=== PATIENT | male | born 1950 | race Caucasian/White ===

== ENCOUNTER → 2022-03-17 15:11 | Outpatient (CLI) | payer MEDICARE, OTHER, SELFPAY | PROVIDERS: Visit Provider Urology | DX: N39.0 Urinary tract infection, site not specified (principal); R30.0 Dysuria; R33.9 Retention of urine, unspecified; R39.9 Unspecified symptoms and signs involving the genitourinary system; Z87.440 Personal history of urinary (tract) infections | CPT/HCPCS: 36415; 51798; 80048; 87086; 99214 ==

== ENCOUNTER → 2022-03-17 16:23 | Outpatient (CLI) | payer MEDICARE, OTHER, SELFPAY ==
[2022-03-17 17:47] LABS: BUN Creatinine Ratio 13.8 (6-22); Blood Urea Nitrogen 17 mg/dL (9-20); Calcium 8.9 mg/dL (8.4-10.2); Carbon Dioxide 26 mmol/L (22-32); Chloride 107 mmol/L (98-107); Estimated Glomerular Filt Rate > 60 mL/min (>60); Glucose 100 mg/dL (80-110); HEMOLYSIS < 15 (0-50); Potassium 3.8 mmol/L (3.4-5.1); Sodium 143 mmol/L (137-145)
== END ==
PROVIDERS: PCP Urology; Referring Provider Urology; Visit Provider Urology
DX: N39.0 Urinary tract infection, site not specified (principal); R33.9 Retention of urine, unspecified
CPT/HCPCS: 36415; 80048

== ENCOUNTER → 2022-03-22 14:24 | Outpatient (CLI) | payer MEDICARE, OTHER, SELFPAY ==
--- NOTE | 2022-03-22 14:25 | DI.CT.S_ITS ---
PROCEDURE: CT ABDOMEN PELVIS WO/W CON INDICATIONS: Hematuria TECHNIQUE: After the administration of oral contrast, 5 mm thick sections acquired from the diaphragms to the iliac crests. After the administration of intravenous contrast, 5 mm thick sections acquired from the diaphragms to the symphysis. 5 mm thick coronal and sagittal reformats were acquired. For radiation dose reduction, the following was used: automated exposure control, adjustment of mA and/or kV according to patient size. COMPARISON: None. FINDINGS: Lower thorax: The lung bases are clear. Heart size normal. No hiatal hernia. Liver: Normal in size and attenuation. No contour deformity present. There is low-density 3 cm lesion in the right hepatic lobe with peripheral puddling of contrast, most consistent with hepatic hemangioma. Biliary system: No calcified cholelithiasis or pericholecystic inflammation. No intra or extrahepatic bile duct dilatation. Pancreas: Unremarkable without mass or inflammation evident. Spleen: Normal in size and density. Adrenals: Normal morphology and density. Reproductive system: Prosthetic hypertrophy elevates the bladder floor Urinary system: Large simple left renal cyst measures 8.9 cm arising from the lower pole the left kidney. No hydronephrosis or obstructive uropathy present. Smaller bilateral renal cysts simple cysts present as well. Large right-sided bladder Hutch diverticulum measures 6.0 x 4.3 cm. Gastrointestinal system: The bowel is unremarkable without evidence of bowel obstruction or inflammation. The stomach appears unremarkable. Appendix: Normal appendix identified. No evidence of appendicitis. Peritoneal spaces: No mesenteric or retroperitoneal adenopathy. No free air. No free fluid. Vasculature: Aortic atherosclerotic vascular calcification noted without evidence of aneurysm. Abdominal wall: Abdominal wall intact without evidence of ventral or inguinal hernias. Musculoskeletal: Normal bone mineralization. No acute fractures. IMPRESSION: 1. Bilateral renal cysts without evidence of obstructive uropathy, hydronephrosis or renal calculi. 2. Large right-sided bladder Hutch diverticulum. 3. Prostatic hypertrophy elevates the bladder floor. 4. Probable right hepatic hemangioma on 03/22/2022 at 18:52 Segundo Dey
== END ==
PROVIDERS: PCP Family Medicine; Referring Provider Urology; Visit Provider Urology
DX: N28.1 Cyst of kidney, acquired (principal); N32.3 Diverticulum of bladder; N40.0 Benign prostatic hyperplasia without lower urinary tract symptoms; R39.9 Unspecified symptoms and signs involving the genitourinary system
CPT/HCPCS: 74178; Q9967

== ENCOUNTER → 2022-05-26 10:29 | Outpatient (CLI) | payer MEDICARE, OTHER, SELFPAY ==
[2022-05-26 12:02] LABS: BUN Creatinine Ratio 17.7 (6-22); Blood Urea Nitrogen 17 mg/dL (9-20); Carbon Dioxide 29 mmol/L (22-32); Chloride 104 mmol/L (98-107); Estimated Glomerular Filt Rate > 60 mL/min (>60); Glucose 101 mg/dL (80-110); HEMOLYSIS < 15 (0-50); Potassium 4.7 mmol/L (3.4-5.1); Sodium 139 mmol/L (137-145)
[2022-05-27 09:57] LABS: PSA Free % 21.9 % (.); PSA, Total 3.2 ng/mL (0.0-4.0)
== END ==
PROVIDERS: PCP Family Medicine; Referring Provider Urology; Visit Provider Urology
DX: N40.0 Benign prostatic hyperplasia without lower urinary tract symptoms (principal); R97.20 Elevated prostate specific antigen [PSA]
CPT/HCPCS: 36415; 51798; 52000; 80048; 81002; 84153; 84154; 99213

== ENCOUNTER → 2022-06-16 11:45 | Outpatient (CLI) | payer MEDICARE, OTHER, SELFPAY ==
[2022-06-16 13:40] LABS: Appearance Urine UA CLOUDY; Bilirubin Urine UA NEGATIVE (NEGATIVE); Color Urine UA YELLOW; Glucose Urine UA NEGATIVE (Negative); Ketones Urine UA NEGATIVE (NEGATIVE); Leukocyte Esterase Urine UA 2+ (NEGATIVE); Nitrite Urine UA NEGATIVE (Negative); Occult Blood Urine UA 3+ (Negative); Protein Urine UA 3+ (Negative); Specific Gravity Urine UA 1.025 (1.000-1.035); Urobilinogen Urine UA 0.2 E.U./dL (0.2)
[2022-06-16 14:11] LABS: Bacteria Urine Many (>30); Culture Indicated Urine Specimen Cultured; RBC Urine 10-30/HPF (0-5/HPF); Squamous Epithelial Cell Urine 1-5 /HPF (0-5/HPF); WBC Urine >100/HPF (0-5/HPF)
== END ==
PROVIDERS: PCP Family Medicine; Referring Provider Urology; Visit Provider Urology
DX: R30.0 Dysuria (principal)
CPT/HCPCS: 81001; 87086

== ENCOUNTER 2022-06-18 18:04 | Emergency (ER) | payer MEDICARE, OTHER, SELFPAY ==
[2022-06-18 18:35] VITALS: BP 177/82; PULSE 80; RESP 16; TEMP 37; O2SAT 98; BMI 23.0
[2022-06-18 18:45] LABS: Appearance Urine UA CLOUDY; Bilirubin Urine UA NEGATIVE (NEGATIVE); Color Urine UA ORANGE; Glucose Urine UA TRACE g/dL (Negative); Ketones Urine UA NEGATIVE (NEGATIVE); Leukocyte Esterase Urine UA 2+ (NEGATIVE); Nitrite Urine UA POSITIVE (Negative); Occult Blood Urine UA 3+ (Negative); Protein Urine UA 3+ (Negative)
[2022-06-18 19:23] LABS: Amorphous Sediment Urine 1+; Bacteria Urine Moderate (10-30); Culture Indicated Urine Specimen Cultured; RBC Urine 10-30/HPF (0-5/HPF); WBC Urine 5-10/HPF (0-5/HPF)
[2022-06-18] MEDS: CIPROFLOXACIN 250 MG TABLET 500 MG PO (20:12)
--- NOTE | 2022-06-18 20:13 | ED_ITS ---
HPI - Male Genitourinary General Chief complaint: Urogenital-Male Stated complaint: Urinary tract problems Time Seen by Provider: 06/18/22 18:26 Source: patient Mode of arrival: Ambulatory History of Present Illness HPI Narrative: Patient is a 72-year-old male who presents to the emergency room today with complaint of urinary tract infection. The patient's CC is urinary frequency burning cloudy urine for the last week. Patient states he also has frequent recurrent urinary tract infections and has had about 3 in the last year. Patient states for urinary tract infection he has been taking ciprofloxacin to help relieve. Patient also states he has an appointment scheduled with provider Dr. Kidd in of this week to address her chronic urinary obstructive issues. Patient denies any other concerns Related Data Home Medications Medication Instructions Recorded Confirmed rosuvastatin 10 mg tablet 10 mg PO DAILY 03/17/22 06/09/22 tamsulosin 0.4 mg capsule 0.4 mg PO DAILY 03/17/22 06/09/22 Previous Rx's Medication Instructions Recorded ciprofloxacin HCl 500 mg tablet 500 mg PO BID #19 tabs 06/18/22 Allergies Allergy/AdvReac Type Severity Reaction Status Date / Time No Known Drug Allergies Allergy Verified 06/09/22 13:59 Review of Systems Review of Systems Narrative: R.O.S.: General: No fever, chills, fatigue or other concerns. Cardiovascular: No chest pain, palpitations or other Cardiovascular related concerns. Respiratory: No S.O.B. or other Respiratory related concerns. HEENT: No congestion, ear pain, rhinorrhea, sore throat or tinnitus Gastrointestinal: No nausea, vomiting or other Gastrointestinal related concerns. Skin: No rash or associated abnormalities Neurological: Awake, alert and in not apparent distress. No Headaches, changes in vision or other related neurological concerns. Patient History Medical History Benign prostatic hyperplasia Bladder outlet obstruction Dysuria Elevated PSA History of chronic urinary tract infection History of heart attack History of urinary tract infection Incomplete emptying of bladder Lower urinary tract symptoms Renal cyst Surgical History Hx of circumcision Family History Daughter Eczema Social History Smoking Status: Former smoker alcohol intake: current caffeine: Yes Smoking Status: Former smoker Exam Initial Vital Signs Initial Vital Signs: Vital Signs Temperature 98.6 F 06/18/22 18:35 Pulse Rate 80 06/18/22 18:35 Respiratory Rate 16 06/18/22 18:35 Blood Pressure 177/82 H 06/18/22 18:35 Pulse Oximetry 98 06/18/22 18:35 Oxygen Delivery Method 06/18/22 18:35 GI Inspection: normal to inspection Palpation: soft, No guarding and No tender Percussion: normal to percussion Auscultation: normal bowel sounds Course Orders Ordered: Discontinued Medications Ciprofloxacin (Ciprofloxacin 250 Mg Tablet) 500 mg PO NOW ONE Stop: 06/18/22 20:08 Last Admin: 06/18/22 20:12 Dose: 500 mg Documented By: ROSELINE Vital Signs Vital signs: Vital Signs - 8 hr 06/18/22 18:35 Temperature 98.6 F Pulse Rate 80 Respiratory Rate 16 Blood Pressure 177/82 H Pulse Oximetry 98 Oxygen Delivery Method Room Air MDM - Male Genitourinary Lab Data Labs: Lab Results 06/18/22 Range/Units 18:30 Urine Color Loop Urine Appearance Cloudy Urine pH 6.0 (4.5-8.0) Ur Specific [place] 1.020 (1.000-1.035) Urine Protein 3+ H (Negative) Urine Glucose (UA) Trace H (Negative) g/dL Urine Ketones Negative (NEGATIVE) Urine Occult Blood 3+ H (Negative) Urine Nitrate Positive H (Negative) Urine Bilirubin Negative (NEGATIVE) Urine Urobilinogen 2.0 H (0.2) E.U./dL Ur Leukocyte Esterase 2+ H (NEGATIVE) Urine RBC 10-30/hpf H (0-5/HPF) Urine WBC 5-10/hpf H (0-5/HPF) Amorphous Sediment 1+ Urine Bacteria Moderate (10-30) H (None) Ur Culture Indicated? Specimen cultured Urine Dip Bedside Urine Glucose Negative Bedside Urine Bilirubin ++ 2 Bedside Urine Ketone - Negative Urine Specific [place] 1.025 Bedside Urine Occult Blood +++ Bedside Urine pH 6 Bedside Urine Protein +++ 300 Bedside Urine Urobilinogen 2+ 4mg Bedside Urine Nitrite - Negative Bedside Urine Leukocytes ++ 125 Esterase [facility] Narrative Medical decision making narrative: Patient is 72-year-old male who presented to the emergency room today with comp laint of frequency burning cloudy urine for about a week. Patient admits to having recurrent urinary tract infections. States he has had about 3 urinary tract infections this year. States he was tried on antibiotics it did not work and was changed to ciprofloxacin to help with sleep previous urinary tract infections. Patient states he is seeing a provider here at [facility] Dr. Morris for his chronic obstructive urinary issues. Patient states his next appointment is scheduled for June 25 of this year. Urine was positive for urinary tract infection. This provider ordered ciprofloxacin b.i.d. times 10 days. First dose to be administered here in the emergency room. Patient agrees with plan Discharge Plan Departure Patient Disposition: Home Clinical Impression: Urinary tract infection Instructions: DI for Urinary Tract Infection (UTI) Activity Restrictions/Additional Instructions: *You have been diagnosed with [a urinary tract infection.] Suggest you take the antibiotics as ordered and follow up with Ear provider on the as you currently scheduled. Also suggest you contact the emergency room with any emergent concerns. *What to do: *Please continue to take your regular medications as directed. [x ] New medication prescriptions sent to your pharmacy: [ ] [ ] New medication written as a paper prescription [ ] No new medications given *Please follow up with your primary care provider in 2-3 days, call for an appointment. Let them know you were seen in the Emergency Department and that we ask that you be seen in follow up. We will electronically transmit a record of today's note if your PCP is in our system *If you do not have a primary care provider please contact the [facility] Resource line at [phone]. They will ask some questions about your medical history and help get you set up with a doctor in the community. *Return to Emergency Department if you should have any new, worsening or concerning symptoms, such as [fever greater than 101 F, shaking chills, worsening pain, persistent vomiting or other bothersome symptoms] Prescriptions: New ciprofloxacin HCl 500 mg tablet 500 mg PO BID Qty: 19 0RF No Action tamsulosin 0.4 mg capsule 0.4 mg PO DAILY rosuvastatin 10 mg tablet 10 mg PO DAILY Referrals: Cong Fletcher DO [Primary Care Provider] - Visit Report Forms: Patient Portal/API
[2022-06-18 20:17] VITALS: BP 150/83; PULSE 78; O2SAT 97
[2022-06-18 20:19] VITALS: BP 150/83; PULSE 73; RESP 16; O2SAT 98
== END 2022-06-18 20:22 | disposition home or self-care (01) ==
PROVIDERS: Emergency Provider Physician Assistant; PCP Family Medicine
DX: N39.0 Urinary tract infection, site not specified (principal)
CPT/HCPCS: 81001; 81003; 87086; 99283

== ENCOUNTER → 2022-06-29 14:28 | Outpatient (CLI) | payer MEDICARE, OTHER, SELFPAY | PROVIDERS: PCP Family Medicine; Visit Provider Urology | DX: N30.01 Acute cystitis with hematuria (principal); N32.0 Bladder-neck obstruction; N40.1 Benign prostatic hyperplasia with lower urinary tract symptoms; R39.14 Feeling of incomplete bladder emptying; N28.1 Cyst of kidney, acquired; R97.20 Elevated prostate specific antigen [PSA]; R39.9 Unspecified symptoms and signs involving the genitourinary system; R33.9 Retention of urine, unspecified | CPT/HCPCS: 81002; 87086; 99214 ==

== ENCOUNTER → 2022-07-16 10:55 | Outpatient (CLI) | payer MEDICARE, OTHER, SELFPAY ==
[2022-07-16 11:42] LABS: COVID19 -Nasal RAPID Negative (Negative)
== END ==
PROVIDERS: PCP Family Medicine; Visit Provider Urology
DX: Z20.822 Contact with and (suspected) exposure to COVID-19 (principal); N32.0 Bladder-neck obstruction; N40.1 Benign prostatic hyperplasia with lower urinary tract symptoms; R39.14 Feeling of incomplete bladder emptying; R97.20 Elevated prostate specific antigen [PSA]; Z87.440 Personal history of urinary (tract) infections; R33.9 Retention of urine, unspecified; R39.9 Unspecified symptoms and signs involving the genitourinary system; N28.1 Cyst of kidney, acquired
CPT/HCPCS: 81002; 87635; 99214

== ENCOUNTER 2022-07-19 06:32 | Day surgery (SDC) | payer MEDICARE, OTHER, SELFPAY ==
[2022-07-14 15:02] VITALS: BMI 23.0
[2022-07-19] VITALS (11 sets, daily range): BP systolic 104–131; BP diastolic 60–78; PULSE 67–80; RESP 12–18; TEMP 36.2–37.1; O2SAT 96–100; BMI 23.0
--- NOTE | 2022-07-19 | PATH_ITS ---
[facility] Accession Number: [id number] . 01 Material submitted: . prostate - PROSTATE TISSUE, MEDIAL LOW PROSTATE . 01 Diagnosis: Prostate Tissue, Medial Low Prostate: Benign prostatic tissue with patchy glandular and stromal hyperplasia and chronic prostatitis. Negative for malignancy. V 07/21/2022 1007 Local . 01 Electronically signed: . Jacquie Nguyen MD, Pathologist NPI- [id number] . 01 Gross description: . Received in formalin labeled with the patient's name and prostate tissue median lobe prostate consists of an irregular ragged fragment of rao soft tissue measuring 2.3 x 1.8 x 1.0 cm. One surface is rao and relatively smooth while the remaining surface is ragged and consistent with cautery artifact. The cauterized surfaces are inked blue. The specimen is serially sectioned and submitted entirely in cassettes A1-A2. ([id number]) /V 07/20/2022 1820 Local . 01 Pathologist provided ICD-10: N42.89 . 01 CPT . 910298 Specimen Comment: A courtesy copy of this report has been sent to [phone] Performed at: 01 [facility] [address] [place] [address] [address], [place], [place] [id number] MD Shane Segovia MD Phone: [phone]
[2022-07-19] MEDS: LACTATED RINGERS 1,000 ML 84 ML IV (06:47)
--- NOTE | 2022-07-19 07:37 | PM.PREOP ---
Pre-operative Note COVID-19 COVID-19 status: Negative Result date/Date tested (Pos, Neg/Pending): 07/16/22 Criteria for continued procedure: Delay expected to result in less-positive ultimate med/surg outcome and Non-surgical alternatives not available or appropriate per current SOC Interval Note History & Physical reviewed/Exam performed by Physician: Yes Changes to H&P: No
[2022-07-19] MEDS: CIPROFLOXACIN 400 MG/200 ML PIGGYBACK 200 MG IV (07:47)
--- NOTE | 2022-07-19 08:17 | SUR.OPER ---
Lithotomy on padded OR bed, head on pillow, arms secured on padded arm boards at <90 degrees abduction. Legs secured in padded yellow fins stirrups.
--- NOTE | 2022-07-19 09:25 | P.OP_ITS ---
Procedure & Clinicians Procedure: Photo vaporization and laser enucleation of prostate Same procedure as scheduled: Yes Indications: This is a 72-year-old male who had profound bladder outlet obstructive symptoms and was found to have a large median lobe which was obstructing the bladder outlet. As well as some bilobar obstructive character to the prostate. He presents this time for the above procedure. Surgeon: Otis Morris Click Yes if Unassisted: Yes Anesthesia Type: General Operative Notes Findings: Urethra to the prostatic fossa was normal. Prostate exhibits moderate approaching severe obstructive character with a large median lobe filling the bladder outlet. Ureteral orifices were in a proximal normal position with clear efflux and at the end of the procedure were intact and unharmed. The bladder exhibits severe trabeculation cellules on the posterior right there is a large mouth diverticulum. There were no stones or other abnormalities within the bladder. At the end the procedure the prostate was widely patent and opened and vigor stream was observed with a full bladder in gentle pressure on the abdomen. A 22 Algerian 5 cc Ruano catheter was left in place with 50 cc of sterile water in the balloon. Total laser energy 154,131 joules total laser time 21 minutes 2 seconds. Closure Type: not applicable Specimen(s): other (Remainder of median lobe of prostate) Applied: catheter (22 Algerian 5 cc Ruano catheter 15 cc of sterile water in the balloon) Estimated Blood Loss (mL): 50 Blood products transfused: none Procedure in detail: Procedure in detail: After informed consent was obtained, the patient was identified and brought to the operative room. Patient placed in a supine position on the table anesthesia was induced to maintain. Ensuring an adequate level of anesthesia the patient was transitioned to the lithotomy position where he was prepped, draped, prepared and secure to the table for a transurethral p rocedure. After time-out and ensuring an adequate level of anesthesia the laser resectoscope was inserted to the urethra prostate and bladder were cystoscopy was performed. The laser fiber was then inserted and the anatomy was of observed. The lateral lobes at the level of the verumontanum were marked with the laser as the distal extent of resection. Then going on the right posterior of the median lobe a flow channel was created with the laser. This was then repeated on the left. The median lobe was then undermined and enucleated. Attention was then turned to the median lobe and it was vaporized after having been enucleated. A small fragment which will be retrieved later was then amputated at the level of the bladder neck. Ureteral orifices were observed and were on involved in the resection. Attention was then turned to the lateral lobes which were vaporized from the bladder neck to the verumontanum down to the surgical capsule. With this done the prostate appearing widely patent the laser resectoscope was removed with the laser on standby. Cystoscope was then inserted and mechanical lithotrite inserted and the remainder of the median lobe was then grasped been removed. The scope was then reinserted and cystoscopy reperformed hemostasis appeared good with the bladder full scope was removed and gentle pressure was applied to the abdomen the patient had a vigorous stream. A 22 Algerian 5 cc Ruano catheter was then passed through the urethra and into the bladder with the aid of a catheter guide. The balloon was filled with 15 cc of sterile water and placed to gravity drainage. Patient was awakened having tolerated the procedure well transferred to the postanesthesia care unit for further recovery the patient will be discharged home there were no complication s. Complications: none Post-operative Condition: stable Disposition: PACU Plan for aftercare: Home with Ruano catheter patient to follow up my office in the morning for Ruano catheter removal and voiding trial.
--- NOTE | 2022-07-19 09:32 | SUR.OPER ---
SEE LASER INFO SHEET
[2022-07-19] MEDS: LACTATED RINGERS 1,000 ML 120 ML IV (09:46)
[2022-07-19] MEDS: ACETAMINOPHEN 325 MG TABLET 650 MG PO (09:54)
[2022-07-19] MEDS: PHENAZOPYRIDINE 100 MG TABLET 200 MG PO (10:00)
--- NOTE | 2022-07-19 11:20 | SUR.PHASEII ---
07/19/22 1100-completed home care instructions with patient,along with night & Day urine bags. Had patient practice with emptying catheter/ unclamping and resecurring devices. Questions answered. vss. meets criteria for discharge. located and moving car after patient dressed. 11:12-Discharged home wearing leg bag,and draining yellow orange tinted clear urine. has night bag and supplies with him, plus instructions. Aware to call Dr Morris's office for Time of appt. tommorrow and to steel pickler prescription at pharmacy.
== END 2022-07-19 11:12 | disposition home or self-care (01) ==
PROVIDERS: PCP Physician Assistant; Referring Provider Urology; Visit Provider Urology
PROC: (CPT 52648; principal; 2022-07-19 07:45)
DX: N40.1 Benign prostatic hyperplasia with lower urinary tract symptoms (principal); N13.8 Other obstructive and reflux uropathy; R33.8 Other retention of urine; N30.90 Cystitis, unspecified without hematuria; N28.1 Cyst of kidney, acquired
CPT/HCPCS: 52649; J0744; J1100; J2250; J2405; J2704; J3010

== ENCOUNTER → 2022-07-22 11:17 | Outpatient (CLI) | payer MEDICARE, OTHER, SELFPAY ==
[2022-07-22 11:22] LABS: Appearance Urine UA CLOUDY; Bilirubin Urine UA NEGATIVE (NEGATIVE); Color Urine UA YELLOW; Glucose Urine UA TRACE g/dL (Negative); Ketones Urine UA NEGATIVE (NEGATIVE); Leukocyte Esterase Urine UA TRACE (NEGATIVE); Nitrite Urine UA NEGATIVE (Negative); Occult Blood Urine UA 3+ (Negative); Protein Urine UA 3+ (Negative); Urobilinogen Urine UA 0.2 E.U./dL (0.2)
[2022-07-22 12:14] LABS: RBC Urine 30-100/HPF (0-5/HPF); WBC Urine 1-5/HPF (0-5/HPF)
[2022-07-22 12:15] LABS: Bacteria Urine Few (2-10); Culture Indicated Urine Specimen Cultured; Squamous Epithelial Cell Urine None Seen (0-5/HPF)
== END ==
PROVIDERS: PCP Physician Assistant; Visit Provider Urology
DX: N28.1 Cyst of kidney, acquired (principal); N32.0 Bladder-neck obstruction; R30.0 Dysuria; R33.9 Retention of urine, unspecified; R39.9 Unspecified symptoms and signs involving the genitourinary system; Z87.440 Personal history of urinary (tract) infections
CPT/HCPCS: 51702; 51798; 81001; 87086

== ENCOUNTER → 2022-07-30 09:53 | Outpatient (CLI) | payer MEDICARE, OTHER, SELFPAY | PROVIDERS: PCP Physician Assistant; Visit Provider Urology | DX: R33.9 Retention of urine, unspecified (principal); R39.9 Unspecified symptoms and signs involving the genitourinary system; Z87.440 Personal history of urinary (tract) infections | CPT/HCPCS: 87086 ==

== ENCOUNTER → 2022-08-06 11:22 | Outpatient (CLI) | payer MEDICARE, OTHER, SELFPAY ==
[2022-08-06 12:03] LABS: COVID19 -Nasal RAPID Negative (Negative)
== END ==
PROVIDERS: PCP Physician Assistant; Visit Provider Urology
DX: Z20.822 Contact with and (suspected) exposure to COVID-19 (principal)
CPT/HCPCS: 87635; C9803

== ENCOUNTER 2022-08-09 07:53 | Day surgery (SDC) | payer MEDICARE, OTHER, SELFPAY ==
[2022-08-04 08:01] VITALS: BMI 23.0
== END 2022-08-09 07:55 | disposition home or self-care (01) ==
LOC: OR 07:54
PROVIDERS: PCP Physician Assistant; Referring Provider Urology; Visit Provider Urology
DX: N40.0 Benign prostatic hyperplasia without lower urinary tract symptoms (principal); R33.9 Retention of urine, unspecified

== ENCOUNTER → 2022-08-12 10:48 | Outpatient (CLI) | payer MEDICARE, OTHER, SELFPAY | PROVIDERS: PCP Physician Assistant; Visit Provider Urology | DX: Z97.8 Presence of other specified devices (principal) | CPT/HCPCS: 87077; 87086; 87186 ==

== ENCOUNTER 2022-08-21 18:11 | Emergency (ER) | payer MEDICARE, OTHER, SELFPAY ==
[2022-08-21 18:16] VITALS: BP 174/81; PULSE 78; RESP 18; TEMP 36.6; O2SAT 98; BMI 22.9
--- NOTE | 2022-08-21 20:33 | PC.NURSE ---
Patients catheter manually irrigated with 300cc sterile NS. Very small clots noted while flushing. Catheter now draining well, with large leg bag attached. Patient tolerated well.
[2022-08-21 20:34] VITALS: BP 132/77; PULSE 75; RESP 16; O2SAT 100
--- NOTE | 2022-08-21 23:00 | ED.GENADULT ---
HPI - General Adult General Chief complaint: Urogenital-Male Stated complaint: UTI,Cath,Leaking,Pain/Burning Time Seen by Provider: 08/21/22 20:19 Source: patient Mode of arrival: Ambulatory History of Present Illness HPI narrative: 72-year-old gentleman with history of recurrent bladder infections, BPH prior green light laser prostate surgery still with catheter in place noted that he was having increasing pain, spasm and urine leaking around the catheter today comes in for further evaluation. He denies any upper abdominal pain no flank pain. He has had no recent fevers vomiting diarrhea constipation. No chest pain, palpitations, orthopnea or dyspnea, no headaches. Related Data Home Medications Medication Instructions Recorded Confirmed rosuvastatin 10 mg tablet 10 mg PO DAILY 03/17/22 08/09/22 tamsulosin 0.4 mg capsule 0.4 mg PO DAILY 03/17/22 08/09/22 Previous Rx's Medication Instructions Recorded phenazopyridine 200 mg tablet 200 mg PO TID PRN pain 6 doses #6 07/19/22 (Pyridium) tabs ciprofloxacin HCl 500 mg tablet 500 mg PO BID #20 tabs 08/16/22 Allergies Allergy/AdvReac Type Severity Reaction Status Date / Time No Known Drug Allergies Allergy Verified 08/06/22 11:18 Review of Systems Review of Systems Narrative: Remainder of complete review of systems is otherwise unremarkable except for that included in the HPI. Patient History Medical History Benign prostatic hyperplasia Bladder outlet obstruction Chronic indwelling Ruano catheter Dysuria Elevated PSA History of chronic urinary tract infection History of heart attack History of urinary tract infection Incomplete emptying of bladder Lower urinary tract symptoms Renal cyst Surgical History History of urologic surgery (07/19/22) Hx of circumcision Hx of tonsillectomy Family History Daughter Eczema Social History household members: spouse Smoking Status: Former smoker alcohol intake: current caffeine: Yes Smoking Status: Former smoker alcohol intake frequency: a few times a week Alcohol type: wine Substance Use Type: does not use Exam Initial Vital Signs Initial Vital Signs: Vital Signs Temperature 97.8 F 08/21/22 18:16 Pulse Rate 78 08/21/22 18:16 Respiratory Rate 18 08/21/22 18:16 Blood Pressure 174/81 H 08/21/22 18:16 Pulse Oximetry 98 08/21/22 18:16 Oxygen Delivery Method 08/21/22 18:16 General: Healthy appearing, in no acute distress. Able to give a complete and coherent history. Well-nourished well-developed HEENT: Moist mucous membranes, normal sclera with reactive pupils, Respiratory: Lungs are clear to auscultation, no wheezing no rales no rhonchi. Full and symmetrical air movement Cardiac: Regular rate and rhythm no murmurs no bruits Abdomen: Soft, nontender, no suprapubic pain or tenderness good bowel tones, no flank pain Skin: Warm and dry, no rashes Neurologic: Grossly neurologically intact with no obvious asymmetries or abnormalities Extremities: No trauma, well perfused Psych: Cooperative, appropriate insight and affect Course Orders Ordered: ED Orders 08/21/22 23:00 Urine Culture Stat Vital Signs Vital signs: Vital Signs - 8 hr 08/21/22 18:16 08/21/22 20:34 Temperature 97.8 F Pulse Rate 78 75 Respiratory Rate 18 16 Blood Pressure 174/81 H 132/77 Pulse Oximetry 98 100 Oxygen Delivery Method Room Air Room Air Medical Decision Making MDM Narrative Medical decision making narrative: 72-year-old gentleman with history of BPH, prostate surgery July 19 and scheduled again for August 24. He has had recurrent bladder infections and is currently on ciprofloxacin. Had a clogged Ruano catheter that seems to have been easily flushed and he is now draining clear urine and neck is completely asymptomatic. Will culture urine, he is sent home, I did give him a syringe to irrigate at home if required. I do not suspect significant infection, sepsis, pyelonephritis, other intra-abdominal abnormalities at this time. Asked him to continue scheduled appointments with Dr. Morris and surgery for next week. He is safe for home discharge Discharge Plan Departure Patient Disposition: Home Clinical Impression: Complication, blocked Ruano catheter Qualifiers: Encounter type: initial encounter Qualified Code(s): T83.091A - Other mechanical complication of indwelling urethral catheter, initial encounter Instructions: How to Care for Your Ruano Catheter -- Male Activity Restrictions/Additional Instructions: Thank you for coming in today It appears that the catheter itself was simply clogged. Your symptoms resolved nicely with irrigation. I have sent you home with a syringe and sterile fluid for irrigation should this happen again. If that is not able to resolve the problem please return to the emergency department Because your currently on ciprofloxacin and just had quite a bit of bladder irrigation I do not think that a simple urinalysis is going to add to your overall clinical picture. I have cultured your urine to make sure that there is not evidence of infection. Please let Dr. Morris know that you were in the emergency department over the weekend in that a urine culture was done. If you find that you are getting worse or develop any new symptoms, please feel free to return to the emergency department for further evaluation. Prescriptions: No Action ciprofloxacin HCl 500 mg tablet 500 mg PO BID Qty: 20 0RF phenazopyridine [Pyridium] 200 mg tablet 200 mg PO TID PRN (Reason: pain) Qty: 6 0RF tamsulosin 0.4 mg capsule 0.4 mg PO DAILY rosuvastatin 10 mg tablet 10 mg PO DAILY Referrals: Felicia Justin PA-C [Primary Care Provider] - Otis Morris MD [Physician] -
[2022-08-21 23:15] VITALS: BP 133/65; PULSE 62; RESP 16; O2SAT 99
== END 2022-08-21 23:17 | disposition home or self-care (01) ==
PROVIDERS: Emergency Provider Emergency Medicine; PCP Physician Assistant
DX: T83.091A Other mechanical complication of indwelling urethral catheter, initial encounter (principal)
CPT/HCPCS: 51798; 87077; 87086; 87186; 99282

== ENCOUNTER 2022-08-22 11:24 | Emergency (ER) | payer MEDICARE, OTHER, SELFPAY ==
[2022-08-22 11:44] VITALS: BP 167/81; PULSE 78; RESP 16; TEMP 36.3; O2SAT 97; BMI 22.9
--- NOTE | 2022-08-22 15:40 | ED.MALEGU ---
HPI - Male Genitourinary <Minor Ny PA-C - Last Filed: 08/22/22 15:52> General Chief complaint: Urogenital-Male Stated complaint: cath not draining here last night Time Seen by Provider: 08/22/22 15:01 History of Present Illness HPI Narrative: Patient is a 72-year-old male who reports to the emergency room today with complaint of difficulty voiding out of her urinary catheter that he has. States that he noticed this at about 8:00 a.m. this morning. States he was voiding well last night and then this morning he noticed that he had difficulty voiding. After not being able to void he reported to the emergency room again and states that he was able to avoid once he arrived here. States now that he is voiding states that he is sitting and lying back that he is noticed that there is less chance of him having a blockage. Also admits to reporting to this emergency room last night for the same concern and states that his catheter was flushed he was able to void and left. First states he has an appointment scheduled with his Urology Dr. Morris on Tuesday to have green laser surgery done to his prostate. This is to be done in an effort to relieve his recurrent blockages. States that he has periodic pain when he has the blockages that is not relieved with Pyridium. Describes the pain as a throbbing burning sensation like the catheter is rubbing against raw tissue. Related Data Home Medications Medication Instructions Recorded Confirmed rosuvastatin 10 mg tablet 10 mg PO DAILY 03/17/22 08/09/22 tamsulosin 0.4 mg capsule 0.4 mg PO DAILY 03/17/22 08/09/22 Previous Rx's Medication Instructions Recorded phenazopyridine 200 mg tablet 200 mg PO TID PRN pain 6 doses #6 07/19/22 (Pyridium) tabs ciprofloxacin HCl 500 mg tablet 500 mg PO BID #20 tabs 08/16/22 oxycodone-acetaminophen 5 mg-325 1 tab PO Q8H PRN pain #7 tabs 08/22/22 mg tablet (Percocet) Allergies Allergy/AdvReac Type Severity Reaction Status Date / Time No Known Drug Allergies Allergy Verified 08/06/22 11:18 Review of Systems <Minor Ny PA-C - Last Filed: 08/22/22 15:52> Review of Systems Narrative: R.O.S.: General: No fever, chills or fatigue. Cardiovascular: No chest pain or palpitations Respiratory: No S.O.B. HEENT: No congestion, ear pain, rhinorrhea, sore throat or tinnitus Gastrointestinal: No nausea or vomiting : Urinary catheter blockage Skin: No rash or associated abnormalities Musculoskeletal: No pain in muscles or joints, no limitation of range of motion, no paresthesia or numbness. ?? Neurological: Awake, alert and in not apparent distress. No Headaches, changes in vision or other related neurological concerns. Patient History <Minor Ny PA-C - Last Filed: 08/22/22 15:52> Medical History Benign prostatic hyperplasia Bladder outlet obstruction Chronic indwelling Ruano catheter Dysuria Elevated PSA History of chronic urinary tract infection History of heart attack History of urinary tract infection Incomplete emptying of bladder Lower urinary tract symptoms Renal cyst Surgical History History of urologic surgery (07/19/22) Hx of circumcision Hx of tonsillectomy Family History Daughter Eczema Social History household members: spouse Smoking Status: Former smoker alcohol intake: current caffeine: Yes Smoking Status: Former smoker alcohol intake frequency: a few times a week Alcohol type: wine Substance Use Type: does not use Exam <Minor Ny PA-C - Last Filed: 08/22/22 15:52> Narrative Exam Narrative: Physical Exam: ? General: normal appearance, well developed, well nourished, alert, and awake. Not in acute distress. ? Head: Normocephalic, no lesions. Chest: Lungs CTAB, no rales, rhonchi or wheezes. ?? Heart: RRR, no murmurs, rubs or gallops. Eyes: PERRLA, EOM's full, conjunctivae clear. ? Neuro: Physiological, no localizing findings, CN3-12 intact. ?? Extremities: Warm, well perfused, FROM, no deformities, no edema. ?? Skin: Normal, no rashes, no lesions noted. : Patient has a urinary catheter in in his voiding at this time. ? PSYCHIATRIC: The mood is good, no blunted affect. Speech is clear. Thought process is linear, thought content is appropriate. The voice is without significant inflection. Gastrointestinal: Soft; NT; ND; Pos BS with Neg. rebound tenderness. No scars or major deformities noted on Visual Inspection. Initial Vital Signs Initial Vital Signs: Vital Signs Temperature 97.4 F L 08/22/22 11:44 Pulse Rate 78 08/22/22 11:44 Respiratory Rate 16 08/22/22 11:44 Blood Pressure 167/81 H 08/22/22 11:44 Pulse Oximetry 97 08/22/22 11:44 Oxygen Delivery Method 08/22/22 11:44 <DO Bertrand Metz Last Filed: 08/22/22 19:10> Initial Vital Signs Initial Vital Signs: Vital Signs Temperature 97.4 F L 08/22/22 11:44 Pulse Rate 78 08/22/22 11:44 Respiratory Rate 16 08/22/22 11:44 Blood Pressure 167/81 H 08/22/22 11:44 Pulse Oximetry 97 08/22/22 11:44 Oxygen Delivery Method 08/22/22 11:44 Course <Minor Ny PA-C - Last Filed: 08/22/22 15:52> Vital Signs Vital signs: Vital Signs - 8 hr 08/22/22 11:44 08/22/22 15:59 Temperature 97.4 F L 98.3 F Pulse Rate 78 68 Respiratory Rate 16 18 Blood Pressure 167/81 H 138/67 Pulse Oximetry 97 96 Oxygen Delivery Method Room Air Room Air <DO Bertrand Metz Last Filed: 08/22/22 19:10> Vital Signs Vital signs: Vital Signs - 8 hr 08/22/22 11:44 08/22/22 15:59 Temperature 97.4 F L 98.3 F Pulse Rate 78 68 Respiratory Rate 16 18 Blood Pressure 167/81 H 138/67 Pulse Oximetry 97 96 Oxygen Delivery Method Room Air Room Air MDM - Male Genitourinary <Minor Ny PA-C - Last Filed: 08/22/22 15:52> MDM Narrative Medical decision making narrative: Patient presents to the emergency room for the 2nd time within 24 hours. With complaint of a blockage his urinary catheter. Has surgery scheduled for Tuesday to have his prostate enlargement her dress. States now that he is moving urine does not want to move the catheter. Nurses done a bladder scan before we do another 1 after the patient voids. Patient also has complaint of periodic bladder pain that is not relieved with Pyridium. Periodic pain medicine was ordered patient discharged and advised to follow-up with his urologist on Tuesday as scheduled. Patient also advised to return to the emergency room if any emergent concerns arise. Discharge Plan Departure Patient Disposition: Home Clinical Impression: Bladder outlet obstruction, Bladder obstruction, Pain in urethra Instructions: DI for Urinary Retention in Men Activity Restrictions/Additional Instructions: *You have been diagnosed with bladder obstruction your urinary catheter that has resolved. You also has complaint of periodic urethral pain with your catheter. I suggest you continue with your follow-up with Dr. Morris on Tuesday or your bladder procedure. I have also ordered periodic medicine help with pain should you have another obstruction with associated pain prior to your visit with Dr. Tineo. Also please return to the emergency room should any emergent concerns arise. [ ] *What to do: *Please continue to take your regular medications as directed. [ ] New medication prescriptions sent to your pharmacy: [ ] [x] New medication written as a paper prescription [ ] No new medications given *Please follow up with your primary care provider in 2-3 days, call for an appointment. Let them know you were seen in the Emergency Department and that we ask that you be seen in follow up. We will electronically transmit a record of today's note if your PCP is in our system *If you do not have a primary care provider please contact the [facility] Resource line at [phone]. They will ask some questions about your medical history and help get you set up with a doctor in the community. *Return to Emergency Department if you should have any new, worsening or concerning symptoms, such as [fever greater than 101 F, shaking chills, worsening pain, persistent vomiting or other bothersome symptoms] Prescriptions: New oxycodone-acetaminophen [Percocet] 5-325 mg tablet 1 tab PO Q8H PRN (Reason: pain) Qty: 7 0RF No Action ciprofloxacin HCl 500 mg tablet 500 mg PO BID Qty: 20 0RF phenazopyridine [Pyridium] 200 mg tablet 200 mg PO TID PRN (Reason: pain) Qty: 6 0RF tamsulosin 0.4 mg capsule 0.4 mg PO DAILY rosuvastatin 10 mg tablet 10 mg PO DAILY Referrals: Felicia Justin PA-C [Primary Care Provider] - Visit Report Forms: Patient Portal/API <Leeann Cazares DO - Last Filed: 08/22/22 19:10> Cosign ED Attending Irving Attestation: I was immediately available in the department for consultation. Documentation has been reviewed.
[2022-08-22 15:59] VITALS: BP 138/67; PULSE 68; RESP 18; TEMP 36.8; O2SAT 96
== END 2022-08-22 16:01 | disposition home or self-care (01) ==
PROVIDERS: Emergency Provider Physician Assistant; PCP Physician Assistant
DX: N32.0 Bladder-neck obstruction (principal); N36.8 Other specified disorders of urethra
CPT/HCPCS: 51798; 99282

== ENCOUNTER 2022-08-24 13:03 | Day surgery (SDC) | payer MEDICARE, OTHER, SELFPAY ==
[2022-08-09 14:36] VITALS: BMI 23.0
[2022-08-24] MEDS: LACTATED RINGERS 1,000 ML 42 ML IV (13:17)
[2022-08-24 13:30] VITALS: BP 114/86; PULSE 86; RESP 16; TEMP 36.1; O2SAT 97; BMI 23.0
[2022-08-24 13:47] LABS: COVID19 -Nasal RAPID Negative (Negative)
[2022-08-24 13:49] VITALS: BMI 23.0
--- NOTE | 2022-08-24 14:01 | PM.PREOP ---
Pre-operative Note COVID-19 COVID-19 status: Negative Result date/Date tested (Pos, Neg/Pending): 08/24/22 Criteria for continued procedure: Non-surgical alternatives not available or appropriate per current SOC Interval Note History & Physical reviewed/Exam performed by Physician: Yes Changes to H&P: No
[2022-08-24] MEDS: CIPROFLOXACIN 400 MG/200 ML PIGGYBACK 200 MG IV (14:30)
--- NOTE | 2022-08-24 14:45 | SUR.OPER ---
Lithotomy on padded OR bed, head on pillow, arms secured on padded arm boards at <90 degrees abduction. Legs secured in padded yellow fins stirrups.
--- NOTE | 2022-08-24 14:54 | SUR.OPER ---
Urinary catheter with leg bag attached removed from patient in the OR prior to prep.
--- NOTE | 2022-08-24 15:08 | PM.OP.1 ---
Procedure & Clinicians Procedure: Photo vaporization of prostate Same procedure as scheduled: Yes Indications: This is a 72-year-old male who had recently undergone photo vaporization and laser enucleation of the prostate. He did well for a time and then suddenly had urinary difficulties and retention. Cystoscopy was performed and it revealed toward the mid to apex of the prostate there was some tissue that had decompressed and recreated of obstruction. Patient presents at this time for photo vaporization of this decompressed re-expanded prostate tissue. Patient also had a urinary tract infection and has been on ciprofloxacin which is culture specific to his organism. Surgeon: Otis Morris Click Yes if Unassisted: Yes Anesthesia Type: General Operative Notes Findings: Urethral meatus is normal urethra shows evidence of Ruano catheter being present. Sphincter as well coapted. Again in the apical to mid prostate there is some re-expanded obstructing tissue. The remainder of the prostate is widely patent and appears to be healing well. A total time of 7 minutes 36 seconds and total laser energy of 72,779 joules were required to open the prostatic fossa up. The remainder of the bladder was normal save the diverticula on the patient's right in the bladder floor which actually appears somewhat smaller than it had previously. A 24 Palestinian 5 cc Ruano catheter was left in place with 15 cc in the balloon. Closure Type: not applicable Specimen(s): none sent Applied: catheter (Twenty-four Palestinian 5 cc Ruano catheter with 15 cc in the balloon.) Estimated Blood Loss (mL): 0 Blood products transfused: none Procedure in detail: Procedure in detail: After after informed consent was obtained, the patient was identified and brought to the operating room where he was placed in a supine position on the operative table. He then had anesthesia induced and maintained. Ensuring an adequate level of anesthesia patient was transitioned to the lithotomy position. After ensuring an adequate level of anesthesia the patient was prepped, draped, prepared for Transurethral procedure. After time-out and ensuring an adequate level of anesthesia the laser resectoscope was passed through the urethra prostate and into the bladder under direct vision. Cystoscopy is performed and the landmarks identified. Again the redundant tissue right and left was then vaporized from the mid prostate to the verumontanum to the prostatic fossa was widely patent and open. Again total laser energy of 72,779 joules were required to open the prostatic fossa. With the prostatic fossa opened and hemostasis assured the bladder was filled and the scope was backed out and the patient had a vigorous stream. Patient then had a 24 Palestinian 5 cc Ruano catheter passed through the urethra prostate in the bladder with the aid of a cath guide. The balloon was filled with 15 cc of sterile water the catheter was placed to gravity drainage, the patient was awakened taken to the postanesthesia care unit having tolerated the procedure well. There were no complications Complications: none Post-operative Condition: stable Disposition: PACU Plan for aftercare: Patient to be discharged home with Ruano catheter to follow up in my office 1st thing in the morning for catheter removal.
[2022-08-24 15:22] VITALS: BP 165/94; PULSE 103; RESP 16; TEMP 36.4; O2SAT 98
[2022-08-24 15:28] VITALS: BP 155/93; PULSE 100; RESP 13; O2SAT 98
[2022-08-24 15:33] VITALS: BP 148/86; PULSE 96; RESP 17; O2SAT 97
[2022-08-24 15:43] VITALS: BP 147/82; PULSE 88; RESP 16; TEMP 36.2; O2SAT 97
[2022-08-24 15:48] VITALS: BP 157/85; PULSE 87; RESP 16; TEMP 36.1; O2SAT 98
[2022-08-24] MEDS: ACETAMINOPHEN 325 MG TABLET 650 MG PO (15:50)
[2022-08-24] MEDS: PHENAZOPYRIDINE 100 MG TABLET 200 MG PO (15:50)
== END 2022-08-24 16:25 | disposition home or self-care (01) ==
PROVIDERS: PCP Physician Assistant; Referring Provider Urology; Visit Provider Urology
PROC: (CPT 52648; principal; 2022-08-24 14:30)
DX: R33.9 Retention of urine, unspecified (principal); N40.1 Benign prostatic hyperplasia with lower urinary tract symptoms; N39.0 Urinary tract infection, site not specified; R30.0 Dysuria; Z20.822 Contact with and (suspected) exposure to COVID-19
CPT/HCPCS: 52649; 00908; 82962; 87635; J0744; J1100; J2405; J2704; J3010

== ENCOUNTER → 2022-09-22 10:33 | Outpatient (CLI) | payer MEDICARE, OTHER, SELFPAY | PROVIDERS: PCP Physician Assistant; Visit Provider Urology | DX: R30.0 Dysuria (principal); R33.9 Retention of urine, unspecified; R39.9 Unspecified symptoms and signs involving the genitourinary system; Z87.440 Personal history of urinary (tract) infections | CPT/HCPCS: 87086 ==

== ENCOUNTER → 2022-11-17 16:39 | Outpatient (CLI) | payer MEDICARE, OTHER, SELFPAY ==
--- NOTE | 2022-11-17 16:45 | DI.US.S_ITS ---
PROCEDURE: US RENAL COMPLETE INDICATIONS: Renal cyst follow-up evaluation TECHNIQUE: Real-time scanning was performed of the kidneys and bladder, with image documentation. COMPARISON: None. FINDINGS: Kidneys: Kidneys are normal in size. Right kidney measures 9.5 cm long; left kidney measures 15.7 cm long. Right renal cortical thickness is 1.2 cm; left renal cortical thickness is 1.2 cm. Renal cortical echotexture is normal. No hydronephrosis or nephrolithiasis. No suspicious solid mass lesions. Large anechoic left renal cyst measuring at 9.5 x 9.4 x 8.6 cm. Bladder: Pre-void bladder volume is 368 mL. Post-void residual is 257 mL. Pre-void images demonstrate no intraluminal masses or stones. On pre-void images, both ureteral jets are noted with color Doppler interrogation. (Of note, ureteral jets may not be detectable in up to 25% of cases due to insufficient differences in specific gravity between ureteral and bladder urine). Large bladder diverticuli. Miscellaneous: No free pelvic fluid. Prostate gland measures 4.7 x 4.6 x 3.9 cm, volume of 44 cc. IMPRESSION: 1. Large benign left renal cyst measuring 9.5 cm. 2. Post void residual 257 cc. Bladder diverticuli. Prominent prostate gland. Dictated by: Hernan Cordero M.D. on 11/18/2022 at 11:34 Approved by: Hernan Cordero M.D. on 11/18/2022 at 11:45
== END ==
PROVIDERS: PCP Physician Assistant; Referring Provider Urology; Visit Provider Urology
DX: N32.3 Diverticulum of bladder (principal); N28.1 Cyst of kidney, acquired
CPT/HCPCS: 76770

== ENCOUNTER → 2022-11-25 15:25 | Outpatient (CLI) | payer MEDICARE, OTHER, SELFPAY ==
[2022-11-25 15:55] LABS: Add Manual Diff / Slide Review NO; Basophils Absolute Auto 0 /uL (0-100); Basophils Percent Auto 0.2 % (0-2); Eosinophils Absolute Auto 0 /uL (0-450); Eosinophils Percent Auto 0.6 % (2-4); Hematocrit 40.8 % (41-53); Hemoglobin 13.4 g/dL (13.5-17.5); Lymphocytes Absolute Auto 700 /uL (1100-4500); Lymphocytes Percent Auto 17.3 % (25-40); Mean Corpuscular HGB Conc 32.7 % (30-36); Mean Corpuscular Hemoglobin 28.3 PG (26-34); Mean Corpuscular Volume 86.5 fL (80-100); Monocytes Absolute Auto 400 /uL (0-900); Monocytes Percent Auto 9.2 % (3-14); Neutrophils Absolute Auto 3000 /uL (1500-7000); Neutrophils Percent Auto 72.7 % (50-75); Platelet Count 191 X10^3/uL (150-400); Red Blood Cell Count 4.72 X10^6/uL (4.5-5.9); Red Cell Distribution Width 13.8 % (11.6-14.8); White Blood Cell Count 4.2 X10^3/uL (4.5-11.0)
[2022-11-25 17:40] LABS: Alanine Aminotransferase 28 IU/L (<50); Alkaline Phosphatase 68 U/L (38-126); Aspartate Aminotransferase 28 IU/L (17-59); BUN Creatinine Ratio 12.9 (6-22); Bilirubin Total 0.6 mg/dL (0.2-1.3); Blood Urea Nitrogen 12 mg/dL (9-20); Calcium 8.6 mg/dL (8.4-10.2); Carbon Dioxide 32 mmol/L (22-32); Chloride 103 mmol/L (98-107); Cholesterol 160 mg/dL (140-199); Estimated Glomerular Filt Rate > 60 mL/min (>60); Glucose 88 mg/dL (80-110); HDL Cholesterol 41 mg/dL (40-60); HEMOLYSIS < 15 (0-50); LDL Cholesterol Calculated 102 mg/dL (<100); Potassium 4.4 mmol/L (3.4-5.1); Sodium 140 mmol/L (137-145); Total Protein 6.7 g/dL (6.3-8.2); Triglycerides 87 mg/dL (35-150)
[2022-11-26 17:12] LABS: Albumin Globulin Ratio 1.5 (1.0-2.8); Globulin 2.7 g/dL (1.7-4.1)
== END ==
PROVIDERS: PCP Physician Assistant; Referring Provider Physician Assistant; Visit Provider Physician Assistant
DX: N40.1 Benign prostatic hyperplasia with lower urinary tract symptoms (principal); R39.9 Unspecified symptoms and signs involving the genitourinary system; R33.9 Retention of urine, unspecified; R39.14 Feeling of incomplete bladder emptying; N32.0 Bladder-neck obstruction; N28.1 Cyst of kidney, acquired; R97.20 Elevated prostate specific antigen [PSA]; E78.49 Other hyperlipidemia; Z98.890 Other specified postprocedural states
CPT/HCPCS: 36415; 80053; 80061; 85025; 99214

== ENCOUNTER → 2023-06-08 11:59 | Outpatient (CLI) | payer MEDICARE, OTHER, SELFPAY ==
--- NOTE | 2023-06-08 12:02 | DI.US.S_ITS ---
PROCEDURE: US RENAL COMPLETE INDICATIONS: Renal cyst TECHNIQUE: Real-time scanning was performed of the kidneys and bladder, with image documentation. COMPARISON: [facility], CT, CT ABDOMEN PELVIS WO/W CON, 03/22/2022, 14:26. [facility], US, US RENAL COMPLETE, 11/17/2022, 17:14. FINDINGS: Kidneys: Right kidney measures 10.2 cm long; left kidney measures 17.3 cm long. Right renal cortical thickness is 1 cm; left renal cortical thickness is 1.4 cm. Renal cortical echotexture is normal. No hydronephrosis or nephrolithiasis. No suspicious solid mass lesions. There is a large simple cyst seen involving the medial inferior aspect the left kidney that measures 9.7 x 9.5 x 0.6 cm. Previously, this measured 9.5 x 9.4 x 8.6 cm. Bladder: Pre-void bladder volume is 398 mL. Post-void residual is 659 mL. Pre-void images demonstrate no intraluminal masses or stones. A bladder diverticulum is seen on the right. On pre-void images, both ureteral jets are noted with color Doppler interrogation. (Of note, ureteral jets may not be detectable in up to 25% of cases due to insufficient differences in specific gravity between ureteral and bladder urine). Miscellaneous: No free pelvic fluid. IMPRESSION: A simple appearing left renal cyst is seen, which is stable in size compared to the prior. Right-sided bladder diverticulum. Large postvoid residual (659 cc), with the bladder measuring larger postvoid than prevoid. The increase in size may be secondary to urine coming in the bladder lumen from the bladder diverticulum. Dictated by: Wiley Chu M.D. on 06/08/2023 at 16:06 Approved by: Wiley Chu M.D. on 06/08/2023 at 16:13
== END ==
PROVIDERS: PCP Physician Assistant; Referring Provider Urology; Visit Provider Urology
DX: N28.1 Cyst of kidney, acquired (principal); N32.3 Diverticulum of bladder
CPT/HCPCS: 76770

== ENCOUNTER → 2023-12-08 07:30 | Outpatient (CLI) | payer MEDICARE, OTHER, SELFPAY ==
--- NOTE | 2023-12-08 07:32 | DI.US.S_ITS ---
PROCEDURE: US ABDOMEN LIMITED INDICATIONS: LEFT LOWER QUADRANT BULGE TECHNIQUE: Real-time focused scanning was performed of the abdomen, with image documentation. COMPARISON: None. FINDINGS: The area of concern within the left lower quadrant demonstrates no visualized area of architectural distortion, mass lesion or focal fluid collection. IMPRESSION: Unremarkable exam. Dictated by: Lou Torres M.D. on 12/08/2023 at 11:12 Approved by: Lou Torres M.D. on 12/08/2023 at 11:14
== END ==
PROVIDERS: PCP Physician Assistant; Referring Provider Surgery; Visit Provider Surgery
DX: R10.32 Left lower quadrant pain (principal)
CPT/HCPCS: 76705

== ENCOUNTER 2024-01-04 11:06 | Day surgery (SDC) | payer MEDICARE, OTHER, SELFPAY ==
--- NOTE | 2024-01-04 | PATH_ITS ---
[facility] Accession Number: [id number] . 01 Material submitted: . colon - ASCENDING POLYP . 01 Diagnosis: ASCENDING COLON POLYP: Inflammatory polyp. MRV 01/06/2024 1327 Local . 01 Electronically signed: . Jignesh Brown MD, PhD, Pathologist NPI- [id number] . 01 Gross description: . ASCENDING POLYP: Received in formalin is 1 fragment(s) of rao, soft tissue measuring 0.5 x 0.4 x 0.3 cm submitted entirely in 1 cassette(s) /MARCEL 01/06/2024 0122 Local . 01 Pathologist provided ICD-10: K51.40 . 01 CPT . 173854 Specimen Comment: A courtesy copy of this report has been sent to [phone] Performed at: 01 [facility] [address] [place] [address] [id number] MD Shane Segovia MD Phone: [phone]
[2024-01-04 11:21] VITALS: BMI 24.3
[2024-01-04 11:28] VITALS: BP 161/89; PULSE 79; RESP 14; TEMP 36.3; O2SAT 96
[2024-01-04] MEDS: LACTATED RINGERS 1,000 ML 42 ML IV (11:29)
--- NOTE | 2024-01-04 12:02 | PM.HP.1 ---
History of Present Illness History of Present Illness Date Patient Seen: 01/04/24 Time Patient Seen: 12:02 Chief complaint: Colonoscopy Narrative: Rafy is a 73-year-old man who is here for colonoscopy. His last 1 was over 10 years ago. Please see office note for more details. He is a Gnosticist and does not want any whole blood products. PFS Medical History Bladder diverticulum Chronic indwelling Ruano catheter Dysuria Bladder outlet obstruction Benign prostatic hyperplasia Renal cyst Elevated PSA History of urinary tract infection Lower urinary tract symptoms Incomplete emptying of bladder History of heart attack History of chronic urinary tract infection Surgical History History of urologic surgery (07/19/22) Hx of tonsillectomy Hx of circumcision Family History Daughter Eczema Social History household members: spouse Smoking Status: Former smoker alcohol intake: current caffeine: Yes Meds Home Medications and Allergies Home Medications Medication Instructions Recorded Confirmed Type rosuvastatin 10 mg tablet 10 mg PO DAILY 03/17/22 11/14/23 History tamsulosin 0.4 mg capsule See Rx Instructions .Route 02/16/23 11/14/23 Rx .COMPLEX #90 caps Allergies Allergy/AdvReac Type Severity Reaction Status Date / Time No Known Drug Allergies Allergy Verified 11/14/23 11:35 Exam Vital Signs (past 8 hours): - 01/04/24 11:28 Temperature 97.4 F L Pulse Rate 79 Respiratory Rate 14 Blood Pressure 161/89 H Pulse Oximetry 96 Oxygen Delivery Method Room Air Oxygen Delivery Method Room Air Const General: healthy appearing Assessment & Plan Assessment and plan (1) Colon cancer screening: Status: Acute Plan We reviewed the risks and benefits of colonoscopy for colon cancer screening and he would like to proceed.
[2024-01-04 12:24] VITALS: BP 109/68; PULSE 74; RESP 18; TEMP 36.4; O2SAT 91
--- NOTE | 2024-01-04 12:26 | PM.OP.COLON ---
Operative Date/Time/Diagnoses Date of procedure: 01/04/24 Time of procedure: 12:26 Pre-op diagnosis: Colon cancer screening Post-op diagnosis: same Procedure & Clinicians Study performed: Colonoscopy Same procedure as scheduled: Yes Surgeon: Marito Phipps Procedure Notes Procedure in detail: Surgeon: Marito Phipps MD Anesthesia: Sudha Trinh CONTACT CENTER ANALYST Procedure: The patient was brought to the endoscopy suite, placed in left lateral decubitus position. The patient was connected to monitoring devices. A time-out was performed. Sedation was administered. Once the patient was adequately sedated, a digital rectal exam was performed and was normal. The scope was then inserted and advanced to the cecum where the appendiceal orifice was identified and photographed. The scope was then slowly withdrawn over greater than 6 minutes. The mucosa was thoroughly inspected. There was a 6 mm polyp in the ascending colon removed with a cold snare. There was some bleeding from the polypectomy site so a single hemoclip was applied with good effect. There was no further bleeding noted. The scope was retroflexed in the rectum. There were some internal hemorrhoids. The scope was straightened and removed. The patient was awakened and brought to recovery. Scope withdrawal time: 9 minutes Sedation time: 13 minutes EBL: 5 mL Findings: 6 mm ascending colon polyp, internal hemorrhoids Post-procedure Disposition: PACU
[2024-01-04 12:29] VITALS: BP 111/69; PULSE 72; RESP 14; O2SAT 97
[2024-01-04 12:34] VITALS: BP 109/79; PULSE 74; RESP 14; O2SAT 97
[2024-01-04 12:40] VITALS: BP 102/71; PULSE 69; RESP 16; O2SAT 97
[2024-01-04 12:46] VITALS: BP 132/84; PULSE 73; RESP 16; O2SAT 97
== END 2024-01-04 13:02 | disposition home or self-care (01) ==
PROVIDERS: Surgery; PCP Physician Assistant; Referring Provider Surgery; Visit Provider Surgery
PROC: 0DJD8ZZ Inspection of Lower Intestinal Tract, Via Natural or Artificial Opening Endoscopic (ICD-10-PCS; CPT 45378; principal; 2024-01-04 12:00)
DX: Z12.11 Encounter for screening for malignant neoplasm of colon (principal); K64.8 Other hemorrhoids; K51.40 Inflammatory polyps of colon without complications
CPT/HCPCS: 45385; J2704

== ENCOUNTER → 2024-01-09 12:59 | Outpatient (CLI) | payer MEDICARE, OTHER, SELFPAY ==
--- NOTE | 2024-01-09 13:01 | DI.US.S_ITS ---
PROCEDURE: US RENAL COMPLETE INDICATIONS: Follow-up renal cyst TECHNIQUE: Real-time scanning was performed of the kidneys and bladder, with image documentation. COMPARISON: [facility], , US RENAL COMPLETE, 06/08/2023, 12:10. FINDINGS: Kidneys: Kidneys are normal in size. Right kidney measures 10.8 cm long; left kidney measures 10.1 cm long. Right renal cortical thickness is 1.4 cm; left renal cortical thickness is 1.6 cm. Renal cortical echotexture is normal. No hydronephrosis or nephrolithiasis. No suspicious solid mass lesions. There is a simple left renal cyst which measures 9.8 x 8.5 x 10.6 cm. This measured 9.7 x 9.5 x 8.6 cm on the study dated June 08, 2023. Bladder: Pre-void bladder volume is 353 mL. Post-void residual is 367 mL. Pre-void images demonstrate no intraluminal masses or stones. There is a large bladder diverticulum redemonstrated. On pre-void images, neither ureteral jets are noted with color Doppler interrogation. (Of note, ureteral jets may not be detectable in up to 25% of cases due to insufficient differences in specific gravity between ureteral and bladder urine). Miscellaneous: No free pelvic fluid. IMPRESSION: 1. Findings suggesting bladder outlet obstruction. The patient was unable to void his bladder during the study. 2. Slight increase in the size of the left renal cyst. 3. No hydronephrosis. Dictated by: Lori Wang M.D. on 01/09/2024 at 16:56 Approved by: Lori Wang M.D. on 01/09/2024 at 16:58
[2024-01-09 16:24] LABS: Prostate Specific Antigen 2.25 ng/mL (0.10-4.00)
== END ==
LOC: US 13:00
PROVIDERS: PCP Physician Assistant; Referring Provider Urology; Visit Provider Urology
DX: N32.3 Diverticulum of bladder (principal); N28.1 Cyst of kidney, acquired; R97.20 Elevated prostate specific antigen [PSA]
CPT/HCPCS: 36415; 76770; 84153

== ENCOUNTER → 2024-08-08 11:04 | Outpatient (CLI) | payer MEDICARE, OTHER, SELFPAY ==
--- NOTE | 2024-08-08 11:05 | DI.US.S_ITS ---
PROCEDURE: US RENAL COMPLETE INDICATIONS: Follow-up renal cysts TECHNIQUE: Real-time scanning was performed of the kidneys and bladder, with image documentation. COMPARISON: [facility], , US RENAL COMPLETE, 01/09/2024, 13:22. FINDINGS: Kidneys: Kidneys are normal in size. Right kidney measures 10.0 cm long; left kidney measures 9.5 cm long. Right renal cortical thickness is 1.5 cm; left renal cortical thickness is 1.5 cm. Renal cortical echotexture is normal. No hydronephrosis or nephrolithiasis. No suspicious solid mass lesions. Re-identified 9.9 x 8.4 x 10.3 cm (previously 9.8 x 8.5 x 10.6 cm) left inferior pole exophytic simple cyst. Bladder: Pre-void bladder volume is 523 mL. Post-void residual is 490 mL. Pre-void images demonstrate no intraluminal masses or stones. On pre-void images, bilateral ureteral jets are noted with color Doppler interrogation. (Of note, ureteral jets may not be detectable in up to 25% of cases due to insufficient differences in specific gravity between ureteral and bladder urine). Miscellaneous: No free pelvic fluid. On postvoid images, there is a 5.6 cm long right posterolateral bladder wall diverticulum with a 0.8 cm neck. No nodularity within the diverticulum. IMPRESSION: 1. Re-identified left inferior pole 10.3 cm exophytic simple cyst. 2. Urinary retention, including retention of urine in the right posterolateral bladder diverticulum. Dictated by: Jose Dee M.D. on 08/08/2024 at 13:28 Approved by: Jose Dee M.D. on 08/08/2024 at 13:40
[2024-08-09 07:10] LABS: PSA Free % 25.5 % (.); PSA, Total 2.2 ng/mL (0.0-4.0)
== END ==
PROVIDERS: PCP Physician Assistant; Referring Provider Urology; Visit Provider Urology
DX: N28.1 Cyst of kidney, acquired (principal); N32.3 Diverticulum of bladder; R97.20 Elevated prostate specific antigen [PSA]; R33.9 Retention of urine, unspecified
CPT/HCPCS: 36415; 76770; 84153; 84154

== ENCOUNTER → 2024-12-27 11:38 | Outpatient (CLI) | payer MEDICARE, OTHER, SELFPAY ==
--- NOTE | 2024-12-27 11:40 | DI.US.S_ITS ---
PROCEDURE: US RENAL COMPLETE INDICATIONS: Follow-up renal cysts TECHNIQUE: Real-time scanning was performed of the kidneys and bladder, with image documentation. COMPARISON: [facility], CT, CT ABDOMEN PELVIS W CON, 12/27/2024, 14:00. [facility], US, US RENAL COMPLETE, 08/08/2024, 11:15. FINDINGS: Kidneys: Kidneys are normal in size. Right kidney measures 10.6 cm long; left kidney measures 9.6 cm long. Right renal cortical thickness is 1.1 cm; left renal cortical thickness is 1.3 cm. Renal cortical echotexture is normal. Punctate nonobstructing right-sided nephrolithiasis. Mild interval growth of the benign, anechoic cyst on the inferior pole of the left kidney measuring 10.2 x 10.2 x 9.3 centimeter, previously 9.9 x 8.4 x 10.3 centimeter. Bladder: Pre-void bladder volume is 363 mL. Post-void residual is 368 mL. Pre-void images demonstrate no intraluminal masses or stones. On pre-void images, both ureteral jets are noted with color Doppler interrogation. (Of note, ureteral jets may not be detectable in up to 25% of cases due to insufficient differences in specific gravity between ureteral and bladder urine). Bladder diverticula is unchanged. Miscellaneous: No free pelvic fluid. Benign hemangioma of segment 6 is unchanged. Mild prostatomegaly, measuring 33 milliliter. IMPRESSION: Mild interval growth of the simple appearing left renal cystic lesion, without internal complexity. Bosniak 1 equivalent. Elevated postvoid residual of 368 milliliter. Persistent bladder diverticulum. Prostatomegaly. Dictated by: Rafy Denis M.D. on 12/28/2024 at 15:07 Approved by: Rafy Denis M.D. on 12/28/2024 at 15:15
== END ==
PROVIDERS: PCP Physician Assistant; Referring Provider Urology; Visit Provider Urology
DX: N28.1 Cyst of kidney, acquired (principal); N20.0 Calculus of kidney
CPT/HCPCS: 76770; 82565

== ENCOUNTER → 2024-12-27 11:40 | Outpatient (CLI) | payer MEDICARE, OTHER, SELFPAY ==
--- NOTE | 2024-12-27 11:41 | DI.CT.S_ITS ---
PROCEDURE: CT ABDOMEN PELVIS W CON INDICATIONS: LLQ PAIN,LEFT SIDE ABD PAIN TECHNIQUE: After the administration of intravenous contrast, axial sections acquired from the lung bases to the pubic symphysis. Coronal and sagittal reformats were performed. For radiation dose reduction, the following was used: automated exposure control, adjustment of mA and/or kV according to patient size. COMPARISON: [facility], CT, CT ABDOMEN PELVIS WO/W CON, 03/22/2022, 14:26. FINDINGS: Image quality: Diagnostic. Lower Chest: No significant findings. ABDOMEN: Liver: Stable hemangiomas in segment 2 and segment 6/7. Gallbladder: No radiopaque gallstones or wall thickening. Biliary ducts: No biliary dilation. Pancreas: No ductal dilation. Spleen: Size is within normal limits. Adrenal Glands: No adrenal nodules. Kidneys and Ureters: No hydronephrosis. No solid mass. No complex renal cystic lesion which requires follow up. Non complex left renal cyst measuring 10.3 centimeter; Bosniak 1 requiring no further follow-up. Punctate, nonobstructing right-sided nephrolithiasis. Stomach and Bowel: Normal colonic caliber, without significant wall thickening. Colonic diverticulosis without evidence of diverticulitis. Peritoneum: No abnormal intraperitoneal fluid. No free air. Ventral Wall: No significant ventral hernia. Abdominal Nodes: No retroperitoneal or mesenteric adenopathy by size criteria. Vessels: Aorta and inferior vena cava are normal in size. PELVIS: Pelvic Organs: Prostatomegaly. Bladder: No bladder wall thickening, accounting for underdistention. Large right lateral bladder wall diverticulum measuring 6.9 centimeter . Pelvic Nodes: No enlarged lymph nodes. Miscellaneous: No inguinal hernias are seen. Bones: No aggressive osseous abnormality. Stable dense bony lesions in the right hemipelvis, likely benign given stability since 2021. IMPRESSION: No findings to explain the patient's left lower quadrant pain. Colonic diverticulosis without evidence of diverticulitis. Urinary bladder diverticulum without evidence of infection. This is probably due to chronic outlet obstruction from a large prostate. Large left renal cyst without internal complexity, which is benign. Other incidental findings as above. Dictated by: Rafy Denis M.D. on 12/28/2024 at 10:42 Approved by: Rafy Denis M.D. on 12/28/2024 at 10:49
== END ==
PROVIDERS: PCP Physician Assistant; Referring Provider Internal Medicine; Visit Provider Internal Medicine
DX: N28.1 Cyst of kidney, acquired (principal); N20.0 Calculus of kidney; R10.32 Left lower quadrant pain; D18.09 Hemangioma of other sites; K57.90 Diverticulosis of intestine, part unspecified, without perforation or abscess without bleeding; N40.0 Benign prostatic hyperplasia without lower urinary tract symptoms; N32.3 Diverticulum of bladder; M89.9 Disorder of bone, unspecified
CPT/HCPCS: 74177; 76770; 82565; Q9967

== ENCOUNTER → 2024-12-27 11:48 | Outpatient (CLI) | payer MEDICARE, OTHER, SELFPAY ==
[2024-12-27 13:26] LABS: Estimated Glomerular Filt Rate > 60 mL/min (>60)
== END ==
PROVIDERS: Radiology Diagnostic Radiology; PCP Physician Assistant
DX: R10.32 Left lower quadrant pain (principal)
CPT/HCPCS: 82565

== ENCOUNTER → 2025-01-01 14:41 | Outpatient (CLI) | payer MEDICARE, OTHER, SELFPAY ==
--- NOTE | 2025-01-01 14:43 | DI.RAD.S_ITS ---
PROCEDURE: XR CHEST 2V INDICATIONS: CHEM EXPOSURE TECHNIQUE: 2 views of the chest were acquired. COMPARISON: None. FINDINGS: Surgical changes and devices: None. Lungs and pleura: Lungs are clear. No pleural effusions or pneumothorax. Mediastinum: Mediastinal contours are normal. Heart size is normal. Bones and chest wall: No suspicious bony abnormalities. Soft tissues appear unremarkable. IMPRESSION: No acute pulmonary process. Dictated by: Lou Torres M.D. on 01/01/2025 at 17:00 Approved by: Lou Torres M.D. on 01/01/2025 at 17:01
== END ==
PROVIDERS: PCP Family Medicine; Referring Provider Family Medicine; Visit Provider Family Medicine
DX: Z77.098 Contact with and (suspected) exposure to other hazardous, chiefly nonmedicinal, chemicals (principal); N28.1 Cyst of kidney, acquired; N32.3 Diverticulum of bladder; R97.20 Elevated prostate specific antigen [PSA]; R33.9 Retention of urine, unspecified; R10.32 Left lower quadrant pain; Z98.890 Other specified postprocedural states; Z87.440 Personal history of urinary (tract) infections; Z87.898 Personal history of other specified conditions
CPT/HCPCS: 51798; 71046; 99214

== ENCOUNTER → 2025-02-11 12:55 | Outpatient (CLI) | payer MEDICARE, OTHER, SELFPAY | PROVIDERS: PCP Family Medicine; Referring Provider Family Medicine; Visit Provider Family Medicine | DX: R05.3 Chronic cough (principal); Z77.110 Contact with and (suspected) exposure to air pollution | CPT/HCPCS: 94060; 94726; 94729 ==

== ENCOUNTER → 2025-05-15 13:45 | Outpatient (CLI) | payer MEDICARE, OTHER, SELFPAY ==
--- NOTE | 2025-05-15 13:46 | DI.US.S_ITS ---
PROCEDURE: US RENAL COMPLETE INDICATIONS: Follow up on renal cysts TECHNIQUE: Real-time scanning was performed of the kidneys and bladder, with image documentation. COMPARISON: [facility], CT, CT ABDOMEN PELVIS W CON, 12/27/2024, 14:00. [facility], US, US RENAL COMPLETE, 01/09/2024, 13:22. US, US ABDOMEN LIMITED, 12/08/2023, 7:43. US, US RENAL COMPLETE, 06/08/2023, 12:10. [facility], US, US RENAL COMPLETE, 11/17/2022, 17:14. CT, CT ABDOMEN PELVIS WO/W CON, 03/22/2022, 14:26. [facility], US, US RENAL COMPLETE, 12/27/2024, 12:20. [facility], US, US RENAL COMPLETE, 08/08/2024, 11:15. FINDINGS: Kidneys: Kidneys are normal in size. Right kidney measures 10.5 cm long; left kidney measures 9.5 cm long. Right renal cortical thickness is 1.3 cm; left renal cortical thickness is 1.4 cm. Renal cortical echotexture is normal. No hydronephrosis or right-sided nephrolithiasis. A 4 mm nonobstructive left lower pole possible calculus is noted but given the absence of visualization of a calcification on CT scanning 12/27/24 this could represent a specular reflector or focus of sludge. A large 10.2 x 9.9 x 10.4 cm left exophytic renal cortical cyst is again seen. No suspicious solid mass lesions. Bladder: Pre-void bladder volume is 318 mL. Post-void residual is 250 mL. Pre-void images demonstrate no intraluminal masses or stones. On pre-void images, bilateral ureteral jets are noted with color Doppler interrogation. (Of note, ureteral jets may not be detectable in up to 25% of cases due to insufficient differences in specific gravity between ureteral and bladder urine). Again noted is a right posterolateral bladder wall diverticulum without change. Miscellaneous: No free pelvic fluid. IMPRESSION: New finding of 4 mm focus of echogenicity within the lower 3rd collecting system of the left kidney, without hydronephrosis. As discussed above several potential alternative etiologies of such a finding should be considered rather than calculus given the absence of a visualized calcification on recent prior CT scanning in that area. Stable appearance of a large exophytic left renal cortical cyst and a relatively prominent longstanding right posterolateral bladder diverticulum. Dictated by: Robert Jesus M.D. on 05/16/2025 at 9:54 Approved by: Robert Jesus M.D. on 05/16/2025 at 10:03
== END ==
LOC: US 13:46
PROVIDERS: PCP Family Medicine; Referring Provider Urology; Visit Provider Urology
DX: N28.1 Cyst of kidney, acquired (principal); N32.3 Diverticulum of bladder
CPT/HCPCS: 76770